=== PATIENT | female | born 1975 | race Hispanic/Latino ===

== ENCOUNTER → 2021-06-07 | Day surgery (SDC) | payer OTHER ==
[~2021-06-07] MED LIST: BUSPIRONE HCL5 MG PO; CYMBALTA20 MG PO; DEXAMETHASONE SOD PHOS 10 MG/1 ML VIAL ONE; EMBREL; ENBREL50 MG/1 M1 INJ; FELDENE20 MG PO; FENTANYL CITRATE/PF 100MCG/2 ML INJ ONE; IOPAMIDOL 200 MG/ML 20 ML VIAL IT ONE; LIDOCAINE HCL 1% 30ML-PF VIAL ONE; LIDOCAINE HCL 2% LOCAL INJ 5 ML SDV VIAL INJ ONE; METHOTREXA25 MG/1 ML INJ; METHOTREXATE2.5 MG PO; MIDAZOLAM HCL 2 MG/2 ML VIAL ONE; PANTOPRAZOLE SO40 M2; PANTOPRAZOLE SO40 MG PO; PLAQUENIL200 MG PO; POVIDONE IODINE 0.05% 0.05 % ML PO ONE; PROPOFOL IV EMULSION 10 MG/ML 20 ML VIAL ONE; [UNRECOGNIZED DRUG - OTHER]
[2021-06-07 07:35] VITALS: BP 115/74
== END | disposition home or self-care (01) ==
LOC: OR 06:46
PROVIDERS: ATTEND Physical Medicine & Rehabilitation Pain Medicine
DX: M54.16 Radiculopathy, lumbar region (principal); M06.9 Rheumatoid arthritis, unspecified; Z01.812 Encounter for preprocedural laboratory examination; Z20.822 Contact with and (suspected) exposure to COVID-19; Z98.84 Bariatric surgery status
CPT/HCPCS: 64483; 64484 ×2; 81025; J1100; J2001 ×2; J2250; J2704; J3010; Q9967; U0002; 77003

== ENCOUNTER → 2024-07-02 | Day surgery (SDC) | payer OTHER ==
[~2024-07-02] MED LIST changes: +CETIRIZINE HCL10 MG PO; +CIMZIA400 MG INJ; -DEXAMETHASONE SOD PHOS 10 MG/1 ML VIAL ONE; +FAMOTIDINE20 MG PO; -FENTANYL CITRATE/PF 100MCG/2 ML INJ ONE; +FOLIC ACID0.4 MG PO; +GABAPENTIN300 MG PO; -IOPAMIDOL 200 MG/ML 20 ML VIAL IT ONE; +KETAMINE HCL INJ 50 MG/ML 10 ML VIAL ONE; -LIDOCAINE HCL 1% 30ML-PF VIAL ONE; +MELOXICAM7.5 MG PO; +METOCLOPRAMIDE HCL 10 MG/2ML VIAL ONE; -MIDAZOLAM HCL 2 MG/2 ML VIAL ONE; +MULTI-VITAMIN1 EACH PO; +OMEPRAZOLE40 MG PO; -POVIDONE IODINE 0.05% 0.05 % ML PO ONE; +ULTRAM 50MG50 MG PO; +VIT D3-VIT K21 EACH PO
[2024-07-02] MEDS: LACTATED RINGER'S 1,000 ML ONE (06:19)
[2024-07-02 08:07] VITALS: TEMP 97.6
[2024-07-02 08:35] VITALS: BP 108/72; PULSE 86; RESP 16; O2SAT 100
== END | disposition home or self-care (01) ==
LOC: ENDO 05:22
PROVIDERS: ATTEND Internal Medicine Gastroenterology
DX: K29.70 Gastritis, unspecified, without bleeding (principal); K20.90 Esophagitis, unspecified without bleeding; K31.89 Other diseases of stomach and duodenum; K44.9 Diaphragmatic hernia without obstruction or gangrene; K21.9 Gastro-esophageal reflux disease without esophagitis; K57.90 Diverticulosis of intestine, part unspecified, without perforation or abscess without bleeding; Z98.84 Bariatric surgery status; K59.09 Other constipation; I10 Essential (primary) hypertension; E66.01 Morbid (severe) obesity due to excess calories; Z79.1 Long term (current) use of non-steroidal anti-inflammatories (NSAID); Z79.899 Other long term (current) drug therapy; Z68.41 Body mass index [BMI] 40.0-44.9, adult
CPT/HCPCS: 43239; 43450; J2003; J2470; J2704; J2765; J7121